=== PATIENT | female | born 2000 | race Caucasian/White ===

== ENCOUNTER 2022-10-12 21:25 | Emergency (ER) | payer OTHER ==
--- NOTE | 2022-10-12 21:32 | ERPHSYRPT ---
- History of Present Illness Time Seen by Provider: 10/12/22 21:32 Source: patient Exam Limitations: no limitations Physician History: This is a thin 22-year-old white female who has noticed tenderness and swelling "knot" in the right groin that is been present for approximately 6-7 days. Patient started on amoxicillin prescription that she was given approximately 1 week ago. She has taken approximately 2 days worth of the amoxicillin. She still has tenderness in the right inguinal crease area and she feels that this abnormal subcutaneous small mass. She has not had any fevers or chills. She has never had anything like this before. She has not had any sweating or weight loss. Timing/Duration: day(s) (1-2) Activites at Onset: none Quality: aching (Ache) Onset Location: other (Right inguinal crease) Pain Radiation: none Severity of Pain-Max: mild (To moderate when palpating) Severity of Pain-Current: mild (To moderate when palpating) Prior abdominal problems: none Sexual intercourse history: non-contributory Modifying Factors: Improves With: nothing Associated Symptoms: lumps (Right inguinal crease), No fever, No chills, No diaphoresis, No lower back pain, No vaginal discharge Allergies/Adverse Reactions: No Known Drug Allergies Allergy (Unverified 10/12/22 21:47) Home Medications: Amoxicillin 500 mg PO TID 10/12/22 [History] Sertraline HCl [Zoloft] 25 mg PO DAILY 10/12/22 [History] Travel Risk - International Travel Have you traveled outside of the country in past 3 weeks: No - Coronavirus Screening Are you exhibiting any of the following symptoms?: No Close contact with a COVID-19 positive Pt in past 14-21 Days: No - Review of Systems Constitutional: No Symptoms Eyes: No Symptoms Ears, Nose, & Throat: No Symptoms Respiratory: No Symptoms Cardiac: No Symptoms Abdominal/Gastrointestinal: No Symptoms Genitourinary Symptoms: No Symptoms Musculoskeletal: No Symptoms Skin: Other (Subcutaneous "knot" right inguinal crease) Neurological: No Symptoms Psychological: No Symptoms Endocrine: No Symptoms Hematologic/Lymphatic: No Symptoms Immunological/Allergic: No Symptoms All Other Systems: Reviewed and Negative - Past Medical History Pertinent Past Medical History: No - Past Surgical History Past Surgical History: No - Nursing Vital Signs Nursing Vital Signs: Initial Vital Signs Temperature 98.4 F 10/12/22 21:50 Pulse Rate 59 L 10/12/22 21:50 Respiratory Rate 20 10/12/22 21:50 Blood Pressure 108/71 10/12/22 21:50 O2 Sat by Pulse Oximetry 100 10/12/22 21:50 Pain Scale Pain Intensity 8 - Physical Exam General Appearance: no apparent distress, alert, anxiety, thin Eye Exam: PERRL/EOMI, eyes nml inspection Ears, Nose, Throat Exam: normal ENT inspection, TM abnormal (L) Neck Exam: normal inspection, non-tender, supple, full range of motion Respiratory Exam: airway intact, No chest tenderness, No respiratory distress Gastrointestinal/Abdomen Exam: No tenderness Pelvic Exam: not done Rectal Exam: not done Back Exam: normal inspection, normal range of motion, No CVA tenderness, No vertebral tenderness Extremity Exam: normal inspection, normal range of motion, pelvis stable, other (No evidence of right lower extremity eschar, abrasions or cellulitis. There is a palpable right inguinal crease mobile 1 to 1-1/2 cm x 1 to 1-1/2 cm tender lymph node. 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, normal mood/affect, nml cerebellar function, nml station & gait, sensation nml Skin Exam: other (See above) Lymphatic Exam: adenopathy (Right inguinal crease), inguinal node tender (R) (Right inguinal crease) SpO2 Interpretation: normal O2 Delivery: Room Air - Course Nursing assessment & vital signs reviewed: No Ordered Tests: Medication Summary Discontinued Medications Generic Name Dose Route Start Last Admin Trade Name Sukumar PRN Reason Stop Dose Admin Cephalexin HCl 500 mg 10/12/22 22:06 Cephalexin Mh500 Mg Capsule PO 10/12/22 22:07 STAT ONE - Progress Progress: unchanged Progress Note: 10/12/22 22:13 This patient's medical issue is 1 of low complexity. The level of complexity and the work-up performed was based on review of the patient's past medical history, medication list review, review of the patient's drug allergy list, history of present illness and physical findings on examination. This patient does not require any laboratory studies or radiographic studies. We will place her on Keflex. She is to stop her amoxicillin. We will discharge her to home with prescription for 7 days of amoxicillin. She will follow-up with her primary care provider for further evaluation management. Medical Desision Making - Diagnostic Testing Diagnostic test were ordered, analyzed, and reviewed by me: No - Risk of complications The pt has a mod risk of morbidity or mortality based on: Need for prescription drug management - Departure Departure Disposition: Home Clinical Impression: Acute adenitis Condition: Stable Critical Care Time: No Additional Instructions: Stop your amoxicillin. Take the Keflex antibiotic as prescribed. If symptoms persist beyond 7 days, follow-up with your primary care physician for further evaluation and management including referral to a general surgeon for possible excisional biopsy. Use ibuprofen 400-600 orally with food 3 times a day for the next 5 days. Follow-up with your primary care provider sooner if you noticed the area becoming more tender or enlarging despite antibiotic treatment. Prescriptions: Cephalexin Mh 500 mg [Keflex 500 mg] 500 mg PO TID #21 cap
[2022-10-12 22:05] VITALS: O2SAT 100
[2022-10-12] MEDS ORDERED: KEFLEX 500 MG PO ONE (22:06)
[2022-10-12] MEDS ORDERED: KEFLEX 500 MG ONE (22:08)
[2022-10-12 22:15] VITALS: BP 103/69; PULSE 52
== END 2022-10-12 22:28 | disposition home or self-care (01) ==
LOC: ED 21:25
DX: L04.1 Acute lymphadenitis of trunk (principal); R10.2 Pelvic and perineal pain; Z79.899 Other long term (current) drug therapy
CPT/HCPCS: 99281; A9270-GY

== ENCOUNTER 2023-04-09 23:05 | Emergency (ER) | payer OTHER ==
[2023-04-09 23:37] VITALS: TEMP 97.8
--- NOTE | 2023-04-09 23:51 | ERPHSYRPT ---
- History of Present Illness Source: patient, other (Significant other) Exam Limitations: no limitations Patient Subjective Stated Complaint: pt states that approx one hour ago while baking at home she started feeling like her heart was "racing and out of beat, going high and low. pt states she first had this approx 1yr ago and was seen by a chief engineer drilling and recovery (Dr Ewing) and had workup done and was told "they don't know what it is" and she has her appt with Dr Ewing this month. over the last year this has happened not even once per month but in the last 4 days it has happened at least twice a day. she states that the episodes usually go away on their own after an hour or two. sometimes during the episodes she gets nauseated and feels like she is going to pass out but has never lost consciousness. states prior to coming to ED she felt lightheaded but that has resolved. Triage Nursing Assessment: pt ambulated to room 6 independently with slow steady gait after standing on scale for weight acquisition. pt is alert and oriented times three, able to speak in complete sentences, able to move all extremities, and with resp even and unlabored. heart sound auscultated to be present and normal. no JVD or edema noted. bilat radial and pedal pulses palpable and equal. bilat anterior lung sounds clear throughout. at this time denies pain, cp, mccoy, lightheadedness, dizziness, sob, difficulty breathing, change in appetite, difficulty with urination or bowel elimination or other ill feelings. skin in warm, pink, dry, and intact. color, sensation, and cap refill all within normal limits for all extremities. Physician History: Patient is a 23-year-old female with history of palpitations x1 week. Patient has a history of palpitations over the last year or so has been worked up for Dr. Ewing in the past for these palpitations. Work-up included echocardiogram and Holter monitor etc. No etiologies palpitations been ascertained by Dr. Ewing or other consultants. Patient is currently in normal sinus rhythm on the monitor and on her EKG. She had some nausea but denies any chest pain, dyspnea, vomiting, coffee or energy drink use, methamphetamine or stimulant use, fever, cough, dysuria, or . Patient states the palpitations can come at rest or exertion. They started night when she was home baking tonight. Patient is doing who works at the [employer]. Timing/Duration: other (Worse over the last week but of occurring over the last year.) Activities at Onset: other (Rest or exertion.) Quality: other (No chest pain.) Chest Pain Radiation: no radiation Severity of Pain-Max: none Severity of Pain-Current: none Modifying Factors: Improves With: nothing Nitro Today/Relief: no nitro taken today Aspirin Treatment Today: no aspirin today Associated Symptoms: denies symptoms, nausea Prior Chest Pain/Cardiac Workup: no prior chest pain Allergies/Adverse Reactions: No Known Drug Allergies Allergy (Verified 04/09/23 23:10) Home Medications: Sertraline HCl [Zoloft] 25 mg PO DAILY 10/12/22 [History] Hx Tetanus, Diphtheria Vaccination/Date Given: Yes Hx Influenza Vaccination/Date Given: No Hx Pneumococcal Vaccination/Date Given: No Immunizations Up to Date: Yes Travel Risk - International Travel Have you traveled outside of the country in past 3 weeks: No - Coronavirus Screening Are you exhibiting any of the following symptoms?: No Close contact with a COVID-19 positive Pt in past 14-21 Days: No - Vaccine Status Have you recieved a Covid-19 vaccination: Yes Computer Lab Aide: [employer] - Vaccination Dates Date of 2cond Vaccination (if applicable): 2020 - Review of Systems Constitutional: No Symptoms Eyes: No Symptoms Ears, Nose, & Throat: No Symptoms Respiratory: No Symptoms Cardiac: No Symptoms, Palpitations Abdominal/Gastrointestinal: No Symptoms Genitourinary Symptoms: No Symptoms Musculoskeletal: No Symptoms Skin: No Symptoms Neurological: No Symptoms Psychological: No Symptoms Endocrine: No Symptoms Hematologic/Lymphatic: No Symptoms Immunological/Allergic: No Symptoms - Past Medical History Pertinent Past Medical History: No Neurological History: No Pertinent History ENT History: No Pertinent History Cardiac History: No Pertinent History Respiratory History: Asthma Endocrine Medical History: No Pertinent History Musculoskeletal History: No Pertinent History GI Medical History: No Pertinent History History: No Pertinent History Psycho-Social History: Anxiety Female Reproductive Disorders: No Pertinent History Other Medical History: palpitations - Past Surgical History Past Surgical History: Yes Neuro Surgical History: No Pertinent History Cardiac: No Pertinent History Respiratory: No Pertinent History Gastrointestinal: No Pertinent History Genitourinary: No Pertinent History Musculoskeletal: No Pertinent History Female Surgical History: No Pertinent History - Social History Smoking Status: Never smoker Exposure to second hand smoke: No Drug Use: none Patient Lives Alone: Yes - Female History Hx Last Menstrual Period: 03/19/23 Hx Now: No - Nursing Vital Signs Nursing Vital Signs: Initial Vital Signs Temperature 97.8 F 04/09/23 23:11 Pulse Rate 64 04/09/23 23:11 Respiratory Rate 18 04/09/23 23:11 Blood Pressure 121/75 04/09/23 23:11 O2 Sat by Pulse Oximetry 100 04/09/23 23:11 Pain Scale Pain Intensity 0 Within normal limit - Physical Exam General Appearance: no apparent distress Eye Exam: PERRL/EOMI, eyes nml inspection Ears, Nose, Throat Exam: normal ENT inspection, TMs normal, pharynx normal, moist mucous membranes Neck Exam: normal inspection, non-tender, supple, full range of motion, No meningismus, No mass, No Brudzinski, No Kernig's, No carotid bruit Respiratory Exam: normal breath sounds, lungs clear, airway intact Cardiovascular Exam: regular rate/rhythm, normal heart sounds, normal peripheral pulses, capillary refill <2 sec, No murmur Gastrointestinal/Abdomen Exam: soft, normal bowel sounds, No tenderness Back Exam: normal inspection, normal range of motion Extremity Exam: normal inspection, normal range of motion Neurologic Exam: alert, oriented x 3, cooperative, viticulturist II-XII nml as tested, normal mood/affect, nml station & gait, sensation nml Skin Exam: normal color, warm, dry Lymphatic Exam: No adenopathy SpO2 Interpretation: normal SpO2: 100 O2 Delivery: Room Air - Course EKG Interpreted by Me: RATE (Normal sinus rhythm/rate 69/normal QT QTc/no acute ST segment abnormalities/normal limit P wave/normal T waves.) Ordered Tests: Active Orders 24 hr Category Date Time Status EKG-ER Only STAT Care 04/09/23 23:40 Active CBC W DIFF Stat Lab 04/09/23 23:51 Completed CMP Stat Lab 04/09/23 23:51 Completed HCG QUALITATIVE, SERUM Stat Lab 04/09/23 23:50 Completed MAGNESIUM Stat Lab 04/09/23 23:51 Completed NT PRO BNPII Stat Lab 04/09/23 23:51 Completed PROTIME WITH INR Stat Lab 04/09/23 23:51 Completed PTT Stat Lab 04/09/23 23:51 Completed T4 (Thyroxine) Stat Lab 04/09/23 23:43 Completed TROPONIN Q4H Lab 04/09/23 23:51 Completed TROPONIN Q4H Lab 04/10/23 03:45 Ordered TROPONIN Q4H Lab 04/10/23 07:45 Ordered TSH [TSH, 3RD Generation] Stat Lab 04/09/23 23:43 Completed Urine Triage Profile Stat Lab 04/09/23 23:40 Ordered Lab/Rad Data: Laboratory Result Diagrams 04/09/23 23:51 04/09/23 23:51 Laboratory Results 04/09/23 04/09/23 04/09/23 Range/Units 23:51 23:51 23:51 WBC (4.0-10.5) x10^3/uL RBC (4.1-5.4) x10^6/uL Hgb (12.0-16.0) g/dL Hct (35-47) % MCV (78-100) fL MCH (26-32) pg MCHC (32-36) g/dL RDW (11.5-14.0) % Plt Count (150-450) x10^3/uL MPV (7.5-11.0) fL Gran % (36.0-66.0) % Immature Gran % (Auto) (0.00-0.4) % Nucleat RBC Rel Count (0.00-0.1) % Eos # (Auto) (0-0.5) x10^3/uL Immature Gran # (Auto) (0.00-0.03) x10^3u/L Absolute Lymphs (auto) (1.0-4.6) x10^3/uL Absolute Monos (auto) (0.0-1.3) x10^3/uL Absolute Nucleated RBC (0.00-0.01) x10^3u/L Lymphocytes % (24.0-44.0) % Monocytes % (0.0-12.0) % Eosinophils % (0.00-5.0) % Basophils % (0.0-0.4) % Absolute Granulocytes (1.4-6.9) x10^3/uL Basophils # (0-0.4) x10^3/uL PT 10.8 (9.4-12.5) SECONDS INR 0.99 (0.8-3.0) APTT 32.8 (25.1-36.5) SECONDS Sodium 138 (137-145) mmol/L Potassium 3.6 (3.5-5.1) mmol/L Chloride 105 (98-107) mmol/L Carbon Dioxide 21 L (22-30) mmol/L Anion Gap 15.4 H (5-15) MEQ/L BUN 13 (7-17) mg/dL Creatinine 0.75 (0.52-1.04) mg/dL Estimated GFR 114.7 ML/MIN Glucose 85 (74-106) mg/dL Calcium 9.7 (8.4-10.2) mg/dL Magnesium 2.2 (1.6-2.3) mg/dL Total Bilirubin 0.50 (0.2-1.3) mg/dL AST 22 (14-36) U/L ALT 18 (0-35) U/L Alkaline Phosphatase 62 (38-126) U/L Troponin I < 0.012 (0.000-0.034) ng/mL NT-Pro-B Natriuret Pep < 20.0 (<300) pg/mL Serum Total Protein 7.0 (6.3-8.2) g/dL Albumin 4.7 (3.5-5.0) g/dL Thyroxine (T4) (5.53-10.96) ug/dL TSH 3rd Generation (0.47-4.68) mIU/L Serum HCG, Qual (NEGATIVE) 04/09/23 04/09/23 04/09/23 Range/Units 23:51 23:50 23:43 WBC 4.7 (4.0-10.5) x10^3/uL RBC 4.39 (4.1-5.4) x10^6/uL Hgb 13.9 (12.0-16.0) g/dL Hct 42.2 (35-47) % MCV 96.1 (78-100) fL MCH 31.7 (26-32) pg MCHC 32.9 (32-36) g/dL RDW 12.0 (11.5-14.0) % Plt Count 223 (150-450) x10^3/uL MPV 9.9 (7.5-11.0) fL Gran % 51.4 (36.0-66.0) % Immature Gran % (Auto) 0.4 (0.00-0.4) % Nucleat RBC Rel Count 0.0 (0.00-0.1) % Eos # (Auto) 0.19 (0-0.5) x10^3/uL Immature Gran # (Auto) 0.02 (0.00-0.03) x10^3u/L Absolute Lymphs (auto) 1.72 (1.0-4.6) x10^3/uL Absolute Monos (auto) 0.27 (0.0-1.3) x10^3/uL Absolute Nucleated RBC 0.00 (0.00-0.01) x10^3u/L Lymphocytes % 37.0 (24.0-44.0) % Monocytes % 5.8 (0.0-12.0) % Eosinophils % 4.1 (0.00-5.0) % Basophils % 1.3 (0.0-0.4) % Absolute Granulocytes 2.39 (1.4-6.9) x10^3/uL Basophils # 0.06 (0-0.4) x10^3/uL PT (9.4-12.5) SECONDS INR (0.8-3.0) APTT (25.1-36.5) SECONDS Sodium (137-145) mmol/L Potassium (3.5-5.1) mmol/L Chloride (98-107) mmol/L Carbon Dioxide (22-30) mmol/L Anion Gap (5-15) MEQ/L BUN (7-17) mg/dL Creatinine (0.52-1.04) mg/dL Estimated GFR ML/MIN Glucose (74-106) mg/dL Calcium (8.4-10.2) mg/dL Magnesium (1.6-2.3) mg/dL Total Bilirubin (0.2-1.3) mg/dL AST (14-36) U/L ALT (0-35) U/L Alkaline Phosphatase (38-126) U/L Troponin I (0.000-0.034) ng/mL NT-Pro-B Natriuret Pep (<300) pg/mL Serum Total Protein (6.3-8.2) g/dL Albumin (3.5-5.0) g/dL Thyroxine (T4) 6.62 (5.53-10.96) ug/dL TSH 3rd Generation 1.900 (0.47-4.68) mIU/L Serum HCG, Qual NEGATIVE (NEGATIVE) - Progress Progress Note: 04/10/23 00:59 Nursing note and vital signs reviewed. No food or housing insecurities noted. Additional history per for significant other. All lab results reviewed and shared with patient. Patient without any ectopy on the monitor during her entire ER stay. Vital signs stable during her entire ER stay. Patient discharged to follow-up with her PCP and/or her chief engineer drilling and recovery. 04/10/23 01:00 Patient advised to quit her vaping. No urine was produced to examine during her stay. Counseled pt/family regarding: lab results, diagnosis, need for follow-up Medical Desision Making - Diagnostic Testing Diagnostic test were ordered, analyzed, and reviewed by me: Yes - Risk of complications The pt has a mod risk of morbidity or mortality based on: Need for prescription drug management - Departure Departure Disposition: Home Clinical Impression: Palpitations Condition: Stable Critical Care Time: No Referrals: Provider,Unknown [NON-STAFF PHY W/O PRIVILEGES] - Follow up/PCP as directed Instructions: Palpitations (DC) Additional Instructions: Follow-up with your family MD or chief engineer drilling and recovery Return to ER as needed. Avoid highly caffeinated drinks. Vaping cessation is recommended. Return to ER for chest pain, shortness of breath, are sustained heart rate greater than 110 while not exercising for greater than 10 minutes.
[2023-04-09 23:56] LABS: Absolute Neutrophil Ct (ANC) 2.39 x10^3/uL (1.4-6.9); BASOPHIL % 1.3 % (0.0-0.4); Basophil (Absolute #) 0.06 x10^3/uL (0-0.4); Eosinophil % 4.1 % (0.00-5.0); Eosinophil (Absolute #) 0.19 x10^3/uL (0-0.5); Hematocrit 42.2 % (35-47); Hemoglobin 13.9 g/dL (12.0-16.0); IMMATURE GRAN # 0.02 x10^3u/L (0.00-0.03); IMMATURE GRAN % 0.4 % (0.00-0.4); Lymphocyte (Absolute #) 1.72 x10^3/uL (1.0-4.6); Mean Cell Volume 96.1 fL (78-100); Mean Corpuscular Hemoglobin 31.7 pg (26-32); Mean Corpuscular Hgb Concent. 32.9 g/dL (32-36); Mean Platelet Volume 9.9 fL (7.5-11.0); Monocyte (Absolute #) 0.27 x10^3/uL (0.0-1.3); Monocytes % 5.8 % (0.0-12.0); Neutrophil % 51.4 % (36.0-66.0); Platelet Count 223 x10^3/uL (150-450); Red Blood Count 4.39 x10^6/uL (4.1-5.4); White Blood Count 4.7 x10^3/uL (4.0-10.5)
[2023-04-10 00:06] LABS: HCG SERUM TEST NEGATIVE (NEGATIVE)
[2023-04-10 00:09] VITALS: RESP 17
[2023-04-10 00:10] LABS: ALBUMIN 4.7 g/dL (3.5-5.0); ANION GAP 15.4 MEQ/L (5-15); BILIRUBIN,TOTAL 0.5 mg/dL (0.2-1.3); Calcium 9.7 mg/dL (8.4-10.2); Creatinine 1 0.75 mg/dL (0.52-1.04); EST GLOMERULAR FILTRATION RATE 114.7 ML/MIN; MAGNESIUM 2.2 mg/dL (1.6-2.3); Potassium 3.6 mmol/L (3.5-5.1)
[2023-04-10 00:12] LABS: INR 0.99 (0.8-3.0); PROTIME 10.8 SECONDS (9.4-12.5); PTT 32.8 SECONDS (25.1-36.5)
[2023-04-10 00:21] LABS: NT PRO BNPII < 20.0 pg/mL (<300); TROPONIN < 0.012 ng/mL (0.000-0.034)
[2023-04-10 00:40] LABS: T4 (Thyroxine) 6.62 ug/dL (5.53-10.96); TSH, 3RD Generation 1.9 mIU/L (0.47-4.68)
[2023-04-10 00:55] VITALS: O2SAT 100
[2023-04-10 00:58] VITALS: BP 108/62; PULSE 65
== END 2023-04-10 01:08 | disposition home or self-care (01) ==
LOC: ED 23:05
DX: R00.2 Palpitations (principal); R11.0 Nausea; Z79.899 Other long term (current) drug therapy
CPT/HCPCS: 36415; 80053; 83735; 83880; 84436; 84443; 84484; 84703; 85025; 85610; 85730; 93005; 99283